=== PATIENT | female | born 1995 | race African-American/Black ===

== ENCOUNTER 2023-02-25 22:42 | Inpatient (IN) ==
[2023-02-26] MEDS ORDERED: PENICILLIN G POTASSIUM 6 MU in DEXTROSE 5% 250 ML IV STA (01:03)
[2023-02-26] MEDS ORDERED: LIDOCAINE 1% LOCAL 20 ML VIAL INFIL PRN (01:03)
[2023-02-26] MEDS ORDERED: OXYTOCIN 30 UNITS/500 ML BAG IV PRN ×2 (01:03→11:20)
[2023-02-26] MEDS: LACTATED RINGER'S 1,000 ML IV PRN ×2 (01:25→05:00)
[2023-02-26 01:36] LABS: Hematocrit (blood only) 33.9 % (37.0-47.0); Hemoglobin 10.9 g/dl (12.0-16.0); Mean Corpuscular Hemoglobin 25.9 pg (25.0-34.0); Mean Corpuscular Hgb Conc 32.2 g/dL (32.0-36.0); Mean Corpuscular Volume 80.5 fL (80.0-100.0); Mean Platelet Volume 12.1 fL (9.4-12.4); Platelet Count 132 K/uL (130-400); RDW Coefficient of Variation 15.9 % (11.5-14.5); RDW Standard Deviation 45.5 fL (36.4-46.3); Red Blood Count 4.21 M/uL (4.20-5.40); White Blood Count 13.91 K/ul (4.8-10.8)
[2023-02-26] MEDS ORDERED: fentaNYL citrate PF 100 MCG/2 ML VIAL ONE (01:45)
[2023-02-26] MEDS ORDERED: ePHEDrine sulfate 50 MG/ML AMP ONE (01:45)
[2023-02-26] MEDS ORDERED: BUPIVACAINE 0.25% PF 30 ML VIAL ONE (01:46)
[2023-02-26] MEDS ORDERED: fentaNYL 2MCG/ML ROPIVACAINE 1.25MG/ML 100 ML BAG EPI ONE (01:46)
[2023-02-26] MEDS ORDERED: LIDOCAINE 2%/EPINEPHRINE 1:200,000 20 ML PF ONE (01:46)
[2023-02-26] MEDS ORDERED: SODIUM CHLORIDE 0.9% PF INJ 10 ML VIAL ONE (01:46)
[2023-02-26] MEDS ORDERED: LIDOCAINE 2% MPF LOCAL 5 ML VIAL EPI PRN (02:28)
[2023-02-26] MEDS ORDERED: ONDANSETRON INJ 2 MG/ML 2 ML VIAL IV PRN (02:28)
[2023-02-26] MEDS ORDERED: LIDOCAINE 2%/EPINEPHRINE 1:200,000 20 ML PF EPI STA (02:28)
[2023-02-26] MEDS ORDERED: fentaNYL 2MCG/ML ROPIVACAINE 1.25MG/ML 100 ML BAG EPI PRN (02:28)
[2023-02-26] MEDS ORDERED: SODIUM CHLORIDE 0.9% PF INJ 10 ML VIAL EPI STA (02:28)
[2023-02-26] MEDS ORDERED: fentaNYL citrate PF 100 MCG/2 ML VIAL EPI PRN (02:28)
[2023-02-26] MEDS ORDERED: diphenhydrAMINE 50 MG/ML VIAL IV PRN (02:28)
[2023-02-26] MEDS ORDERED: NALOXONE HCL 1 MG in SODIUM CHLORIDE 0.9% 1000ML 1,000 ML IV PRN (02:28)
[2023-02-26] MEDS ORDERED: BUPIVACAINE 0.25% PF 30 ML VIAL EPI PRN (02:28)
[2023-02-26] MEDS ORDERED: NALOXONE HCL 0.4 MG/1 ML VIAL/CARP IV PRN (02:28)
[2023-02-26] MEDS ORDERED: fentaNYL citrate PF 100 MCG/2 ML VIAL EPI STA (02:28)
[2023-02-26] MEDS ORDERED: BUPIVACAINE 0.25% PF 30 ML VIAL EPI STA (02:28)
[2023-02-26] MEDS ORDERED: SODIUM CHLORIDE 0.9% PF INJ 10 ML VIAL EPI PRN (02:28)
[2023-02-26] MEDS ORDERED: ROPIVACAINE 0.5% PF 5 MG/ML 20 ML VIAL EPI PRN (02:28)
[2023-02-26] MEDS ORDERED: NALBUPHINE HCL INJ 10 MG/ML AMP IV PRN (02:28)
[2023-02-26] MEDS ORDERED: ePHEDrine sulfate 50 MG/ML AMP IV PRN (02:28)
--- NOTE | 2023-02-26 02:30 | Anesthesiology Consultation ---
Date of Service February 26, 2023 Assessment & Plan Chart Review Chart Review: Patient NOT seen in Pre Admission Testing and Acceptable Risk for Labor Epidural Consults Requested none ASA ASA2 Proposed Anesthesia Anesthesia Type: Labor Epidural Risk / Benefits Reviewed With: PT / POA / Parent / Guardian, Accepts Plan and Informed Consent Obtained History Height/Weight Height: 5 ft 5 in Weight: 102.512 kg Allergies Allergy/AdvReac Type Severity Reaction Status Date / Time No Known Allergies Allergy Verified 02/22/23 12:12 Medications Home Medications Medication Instructions Recorded Confirmed Last Taken albuterol 1 puff inhalation DIRECTED 02/26/23 02/26/23 Unknown [id number] 1 mg 1 tab PO DAILY 02/26/23 02/26/23 Unknown tablet Active Medications Generic Name Dose Route Start Last Admin Trade Name Freq PRN Reason Stop Dose Admin Lactated Ringer's 1,000 mls @ 125 mls/hr 02/26/23 01:03 02/26/23 02:10 Lr IV 02/28/23 01:02 125 mls/hr .Q8H PRN Infusion L&D Protocol Protocol Past Medical History Medical History (Updated 01/15/23 @ 07:57 by Carlie Gross MD, FACOG) Asthma History of chicken pox Exercise / Class Metabolic Activity II 4-5 Yardwork/Stairs/Walk up hill Past Family History Family History (Updated 01/03/23 @ 14:15 by Consuelo Zelaya) Grandfather (Paternal) Diabetes Mother Thyroid cancer Denies family history of Ovarian cancer Breast cancer Colorectal cancer Past Surgical History Surgical History (Updated 01/03/23 @ 14:36 by Consuelo Zelaya) S/P tonsillectomy S/P wisdom tooth extraction Past Anesthesia History No Hx of Anesthesia Complications and No Family Hx of Anesthesia Complications History of PONV No Hx of PONV and No Hx of Motion Sickness Social History Smoking Status: Never smoker Do You Dip or Chew Tobacco: No Hx Alcohol Use: No Hx Substance Use: No Physical Exam Vital Signs Last Vital Signs Temp 36.6 C 02/25/23 22:58 Pulse 115 H 02/26/23 02:27 Resp 18 02/25/23 22:58 BP 114/64 02/26/23 02:27 Pulse Ox 94 02/26/23 02:27 ENMT Mouth: no dentition abnormality Thyromental Distance: > or= 3.5 Finger Breadths Mallampati Class: II Neck normal visual inspection Respiratory normal respiratory effort Auscultation: lungs clear to auscultation bilaterally Cardiovascular Rate/Rhythm: regular rate and regular rhythm Psychiatric Orientation: alert Testing Laboratory Results 02/26/23 01:18
[2023-02-26] MEDS: PENICILLIN G POTASSIUM 3 MU in DEXTROSE 5% 100 ML IV PRN ×2 (05:09→09:09)
--- NOTE | 2023-02-26 07:11 | History & Physical Report ---
Date of Service February 26, 2023 Assessment & Plan (1) GBS (group B Streptococcus carrier), +RV culture, currently : (2) Encounter for supervision of normal in multigravida: (3) Normal labor: Emily Franks is a 27-year-old G3, P2 at 40 weeks 2 days gestational age presents in labor. 1. Fetus: Cat 1 2. Labor: Progressing. Augment as indicated 3. GBS positive: PCN 4. Vitals within normal limit History of Present Illness Primary Care Provider: EVANGELIST Franks is a 27-year-old G3, P2 presents in the labor. Denying leakage of fluid or vaginal bleeding. Reports good movement. complicated by GBS positive. Has a history of 2 vaginal deliveries without complication. OB Optional Labs: No Data to Display Labs Reviewed: Initial OB Labs 07/31/22 Blood Type & RH B positive Antibody Screen negative HCT/HGB 37.2/11.6 Platelets 169 Hep C IgG 13yrs+ Old non- reactive Pap Test Chlamydia negative Gonorrhea negative Rubella reactive RPR nonreactive Urine Culture/Screen HBsAg nonreactive HIV nonreactive MCV 82.1 Ultrasound 24-28 Week OB Labs 12/08/22 HCT/HGB 31.3/9.9 Diabetes Screen (1hr) 106 2HR GTT (if screen abnormal) Antibody Screen Urine Culture/Screen Allergies Allergy/AdvReac Type Severity Reaction Status Date / Time No Known Allergies Allergy Verified 02/22/23 12:12 Home Medications Medication Instructions Recorded Confirmed Type albuterol 1 puff inhalation DIRECTED 02/26/23 02/26/23 History [id number] 1 mg 1 tab PO DAILY 02/26/23 02/26/23 History tablet Patient History Medical History (Updated 02/26/23 @ 07:10 by Ruslan Mccoy MD) Asthma History of chicken pox Surgical History (Updated 01/03/23 @ 14:36 by Consuelo Zelaya) S/P tonsillectomy S/P wisdom tooth extraction Family History (Updated 01/03/23 @ 14:15 by Consuelo Zelaya) Grandfather (Paternal) Diabetes Mother Thyroid cancer Denies family history of Ovarian cancer Breast cancer Colorectal cancer Social History (Updated 01/03/23 @ 14:16 by Consuelo Zelaya) Smoking Status: Never smoker Do You Dip or Chew Tobacco: No; Hx Alcohol Use: No Hx Substance Use: No 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 Beliefs That Will Affect Care: None marital status: Single marital status details: Pepper Bautista (33) [phone] Current Living Situation: Spouse and Parent Current Living Situation Comment: lives with fob, 2 children, no pets current occupational status: employed 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 Results & Data Vital Signs (Past 12 Hours) Vital Signs Temp Pulse Resp BP 02/25/23 22:58 36.6 C 18 02/25/23 22:56 100 H 120/76 Coding Level of Care Code None Diagnoses GBS (group B Streptococcus carrier), +RV culture, currently O99.820 Encounter for supervision of normal in multigravida Z34.80 Normal labor O80; Z37.9
--- NOTE | 2023-02-26 09:03 | Labor Progress Brief Note ---
Date of Service February 26, 2023 Subjective comfortable Assessment & Plan (1) Normal labor: (2) GBS (group B Streptococcus carrier), +RV culture, currently : Plan arom for mec. fetus category one. anticipate . Admission and Anticipated Discharge Date Admission Date: February 26, 2023 Physical Exam Physical Exam: cx--ant lip, +1, arom for thin green mec toco--q5-6min efm--120s with mod variability, accels to 140s, no decels, +scalp stim. Results & Data Vital Signs (Past 12 Hours) Vital Signs Temp Pulse Resp BP Pulse Ox 02/26/23 07:05 36.8 C 20 02/25/23 22:58 36.6 C 18 02/26/23 08:59 101 H 120/68 02/26/23 08:57 89 97 02/26/23 08:52 84 95 02/26/23 08:47 91 H 95 02/26/23 08:44 93 H 111/69 02/26/23 08:42 91 H 95 02/26/23 08:37 87 96 02/26/23 08:30 20 02/26/23 08:30 20 02/26/23 08:32 91 H 97 02/26/23 08:29 96 H 107/67 02/26/23 08:27 90 95 02/26/23 08:22 91 H 97 02/26/23 08:17 88 95 02/26/23 08:14 93 H 109/67 02/26/23 08:12 94 H 94 02/26/23 08:00 20 02/26/23 08:00 20 02/26/23 08:07 94 H 95 02/26/23 08:02 92 H 94 02/26/23 07:59 99 H 111/68 02/26/23 07:57 96 H 94 02/26/23 07:52 90 97 02/26/23 07:47 93 H 94 02/26/23 07:44 91 H 111/69 02/26/23 07:42 99 H 95 02/26/23 07:37 96 H 94 02/26/23 07:32 90 94 02/26/23 07:30 20 02/26/23 07:30 20 02/26/23 07:29 94 H 116/72 07/31/23 07:27 97 H 95 02/26/23 07:22 101 H 95 02/26/23 07:17 96 H 94 02/26/23 07:14 103 H 110/71 02/26/23 07:12 98 H 93 02/26/23 07:07 101 H 96 02/26/23 07:02 100 H 97 02/26/23 06:59 94 02/26/23 06:59 104 H 02/26/23 06:59 96 H 118/74 02/26/23 06:57 102 H 96 02/26/23 06:52 94 H 96 02/26/23 06:47 90 95 02/26/23 06:46 92 H 94 02/26/23 06:44 95 H 119/73 02/26/23 06:42 89 96 02/26/23 06:40 99 H 94 02/26/23 06:37 91 H 95 02/26/23 06:34 99 H 94 02/26/23 06:32 92 H 95 02/26/23 06:29 87 126/79 02/26/23 06:27 96 H 95 02/26/23 06:26 106 H 93 02/26/23 06:22 96 H 96 02/26/23 06:20 98 H 91 02/26/23 06:17 99 H 96 02/26/23 06:14 88 121/72 02/26/23 06:12 97 H 97 02/26/23 06:07 92 H 95 02/26/23 05:56 18 02/26/23 05:56 18 02/26/23 06:02 92 H 95 02/26/23 05:59 100 H 113/69 02/26/23 05:57 96 02/26/23 05:57 97 H 02/26/23 05:57 96 H 94 02/26/23 05:52 92 H 96 02/26/23 04:54 18 02/26/23 04:54 18 02/26/23 05:47 95 H 95 02/26/23 05:44 100 H 119/71 02/26/23 05:42 101 H 97 02/26/23 05:40 114 H 94 02/26/23 05:37 100 H 95 02/26/23 05:32 99 H 96 02/26/23 05:30 94 H 117/72 02/26/23 05:27 105 H 97 02/26/23 05:25 94 02/26/23 05:25 89 02/26/23 05:25 36.7 C 96 H 18 120/67 02/26/23 05:22 99 H 98 02/26/23 05:17 101 H 96 02/26/23 05:15 102 H 94 02/26/23 05:12 111 H 96 02/26/23 05:07 111 H 98 02/26/23 05:02 101 H 96 02/26/23 05:00 90 122/77 02/26/23 04:57 95 H 95 02/26/23 04:52 100 H 96 02/26/23 04:47 95 H 95 02/26/23 04:44 91 H 120/77 02/26/23 04:42 87 96 02/26/23 04:37 87 97 02/26/23 04:32 91 H 97 02/26/23 04:30 94 H 94 02/26/23 04:29 86 119/72 02/26/23 04:27 98 H 94 02/26/23 04:25 92 H 94 02/26/23 04:22 88 18 95 02/26/23 04:20 95 H 94 02/26/23 04:17 95 H 94 02/26/23 04:14 94 02/26/23 04:14 101 H 02/26/23 04:14 103 H 112/66 02/26/23 04:12 92 H 93 02/26/23 04:07 96 H 93 02/26/23 04:02 94 H 93 02/26/23 03:59 104 H 111/66 02/26/23 03:57 96 H 94 02/26/23 03:55 102 H 94 02/26/23 03:52 92 H 94 02/26/23 03:50 96 H 94 02/26/23 03:47 106 H 94 02/26/23 03:44 87 112/66 94 02/26/23 03:42 99 H 95 02/26/23 03:37 95 H 95 02/26/23 03:36 87 94 02/26/23 03:32 101 H 95 02/26/23 03:31 87 93 02/26/23 03:29 104 H 110/65 02/26/23 03:27 97 H 95 02/26/23 03:22 102 H 95 02/26/23 03:23 104 H 94 02/26/23 03:18 89 94 02/26/23 02:40 18 02/26/23 02:40 18 02/26/23 02:45 18 02/26/23 02:45 18 02/26/23 03:17 104 H 95 02/26/23 02:35 18 02/26/23 02:35 18 02/26/23 03:15 99 H 115/67 02/26/23 03:12 102 H 96 02/26/23 03:10 88 93 02/26/23 03:07 107 H 95 02/26/23 03:04 85 94 02/26/23 03:02 106 H 95 02/26/23 02:59 98 H 18 113/66 02/26/23 02:57 94 02/26/23 02:57 96 H 02/26/23 02:57 87 93 02/26/23 02:52 107 H 95 02/26/23 02:50 104 H 94 02/26/23 02:47 109 H 95 02/26/23 02:44 101 H 116/67 02/26/23 02:42 100 H 95 02/26/23 02:37 105 H 95 02/26/23 02:32 104 H 94 02/26/23 02:27 115 H 114/64 94 02/26/23 02:25 98 H 18 123/68 02/26/23 02:22 106 H 96 02/26/23 02:21 109 H 93 02/26/23 02:20 104 H 139/69 02/26/23 02:17 94 H 99 02/26/23 02:11 105 H 138/90 02/25/23 22:56 100 H 120/76 Coding Level of Care Code None Diagnoses Normal labor O80; Z37.9 GBS (group B Streptococcus carrier), +RV culture, currently O99.820
--- NOTE | 2023-02-26 11:12 | Delivery Summary ---
Vaginal Delivery Summary Date of Service February 26, 2023 Vaginal Delivery Summary Vaginal Delivery Summary: Pre-delivery diagnoses: 27yo @ 40 2/, elective IOL, GBS+, transfer of care Post-delivery diagnoses: same Procedure: spontaneous vaginal delivery Surgeon: Greta Rubi DO Complications: none Findings: Viable female . Apgars 8/9 and weight pending, please see nursery records Estimated blood loss: 300ml Description of delivery: The patient progressed to complete with epidural anesthesia. She then began to push. She spontaneously vaginally delivered a viable from the cephalic presentation. The head delivered in BUCK position. The anterior shoulder delivered, followed by the posterior shoulder, followed by the body. No nuchal. The baby was placed on mother's abdomen and was vigorious and a spontaneous cry was heard. Delayed cord clamping was employed, and the cord was doubly clamped and cut. Cord blood was obtained. The placenta was delivered spontaneously intact with a 3-vessel cord. The uterus and vagina were swept of clots and debris. IV pitocin was given. The uterus became firm. The cervix, vagina, and perineum were inspected and no lacerations were noted. Excellent hemostasis was observed. The mother and baby are recovering in stable and good condition in the room. Sponge and instrument counts were correct x 2. Greta Rubi DO [facility] [place] Vaginal Delivery Charge Vaginal Delivery Codes: 73960 global code for the antepartum, delivery, and post- Delivery Type Details:
[2023-02-26] MEDS ORDERED: HYDROCORTISONE ACETATE 25 MG SUPP PR PRN (11:20)
[2023-02-26] MEDS ORDERED: oxyCODONE/ACETAMINOPHEN 5mg/325mg TAB PO PRN (11:20)
[2023-02-26] MEDS ORDERED: IBUPROFEN 600 MG TAB PO PRN (11:20)
[2023-02-26] MEDS ORDERED: DIPHTHERIA/TETANUS/PERTUSSIS Vaccine (Tdap, Age 7+yrs) 0.5mL SYR/VL IM ONE (11:20)
[2023-02-26] MEDS ORDERED: ACETAMINOPHEN 325 MG TAB PO PRN (11:20)
[2023-02-26] MEDS ORDERED: BENZOCAINE 20% SPRY 85 APPLN/85 GM CAN EXT PRN (11:20)
[2023-02-26] MEDS ORDERED: bisacodyL 10 MG SUPP PR PRN (11:20)
--- NOTE | 2023-02-26 12:41 | Anesthesia Procedure Note ---
Date of Service February 26, 2023 Anesthesia Post Epidural Note Vital Signs Vital Signs: Temp Pulse Resp BP Pulse Ox 36.7 C 76 20 115/66 81 L 02/26/23 09:00 02/26/23 12:29 02/26/23 12:14 02/26/23 12:29 02/26/23 10:59 Notes Mental Status: alert / awake / arousable and participated in evaluation Nausea / Vomiting: adequately controlled Pain: adequately controlled Airway Patency, RR, SpO2: stable & adequate BP & HR: stable & adequate Hydration State: stable & adequate Neuraxial Anesthesia: was administered and sensory block is resolving Anesthetic Complications: no major complications apparent and Pt Satisfied with anesthetic care Epidural: Removed without complications and With tip intact
[2023-02-26] MEDS: ceFAZolin 1000MG 1,000 MG/7.5 ML SYR IV SCH ×2 (13:18→20:02)
[2023-02-26] MEDS: DOCUSATE SODIUM 100 MG CAP PO SCH (21:06)
[2023-02-27] MEDS: ceFAZolin 1000MG 1,000 MG/7.5 ML SYR IV SCH (04:15)
--- NOTE | 2023-02-27 07:04 | Obstetrical Progress Note ---
Date of Service <Mercy Hazel MD - Last Filed: 02/27/23 08:38> February 27, 2023 Assessment & Plan <Mercy Hazel MD - Last Filed: 02/27/23 08:38> (1) Spontaneous vaginal delivery: Patient with the above mentioned history and findings was evaluated at bedside and found awake, alert, oriented in all spheres, afebrile, and in no acute distress. Overall, patient is doing well clinically. Therefore, will encourage ambulation as tolerated and will resume regular diet. Will continue monitoring pain levels and management with current regimen. Patient is encouraged to breastfeed and to notify changes in normal lochia such as excessive bleeding (using more than 1 pad per hour), foul smell, or purulent appearance. Discharge instructions were discussed. She is to make an appointment with her OB in 6 weeks for follow up evaluation. All questions were answered. <Greta Rubi DO - Last Filed: 02/27/23 08:59> (1) Spontaneous vaginal delivery: Subjective <Mercy Hazel MD - Last Filed: 02/27/23 08:38> Tiny is a 27 y/o female who is now PPD # 1 following at 40 2/7 weeks. Reports feeling well overall this morning. Refers moderate abdominal cramping & 4/10 pain well managed on analgesics. Voiding spontaneously. Tolerating meals overnight and able to ambulate some. She is passing gas but has not had a bowel movement yet. Some persistent lochia with some improvement this morning. Bottle feeding. Her blood type is B positive and her Hb is 9.8. She is GBS positive treated during labor, and is rubella immune. Constitutional: no fever, no chills or no sweats Denies shortness of breath or difficulty breathing Cardiovascular: no chest pain or no palpitations Breast: no breast pain Genitourinary (female): no dysuria Neurologic: no headache(s) Denies changes in vision Physical Exam <Mercy Hazel MD - Last Filed: 02/27/23 08:38> General: Alert. Oriented to person, time, and place. Afebrile. No acute distress. Eyes: pupils equal and reactive to light bilaterally, extraocular movements intact. Cardiac: Regular rate and rhythm, no murmurs/rubs/gallops. Respiratory: Clear to auscultation bilaterally a/p, no wheezes/rales/rhonchi. No increased work of breathing. Symmetrical chest rise. No respiratory distress. Abdomen: Soft, nontender, nondistended. Bowel sounds present. Uterus: Uterine fundus firm, mildly tender, and is palpable below umbilicus. Lower Extremities: Bilateral lower extremity swelling without pitting. No deep calf pain. Abdirahman's negative bilaterally. Psych: Euthymic affect. Mood and affect congruence. Regular speech rate and content. Results & Data <Mercy Hazel MD - Last Filed: 02/27/23 08:38> Vital Signs (Past 12 Hours) Vital Signs Temp Pulse Resp BP Pulse Ox O2 Del Method 02/27/23 04:25 36.7 C 82 16 126/86 02/26/23 23:05 36.7 C 88 18 126/86 98 Room Air 02/26/23 19:50 36.6 C 88 18 132/84 98 Room Air <Greta Rubi DO - Last Filed: 02/27/23 08:59> Co-Signing Physician Notes Resident Physician Supervision Note: I was present with Dr. Hazel during the history and exam. I discussed the case with the resident and agree with the findings and plan as documented in the note. Any exceptions or clarifications are listed here: PPD#1 doing well, desires DC home. Reviewed instructions. Documented By: Greta Rubi DO Resident Activity Tracking <Mercy Hazel MD - Last Filed: 02/27/23 08:38> Resident Involvement: Resident Care Provided Care Provided: OB Delivery
[2023-02-27 07:09] LABS: Hematocrit (blood only) 31.1 % (37.0-47.0); Hemoglobin 9.8 g/dl (12.0-16.0)
[2023-02-27] MEDS ORDERED: PRENATAL VITAMIN 1 TAB PO SCH (08:00)
[2023-02-27] MEDS: DOCUSATE SODIUM 100 MG CAP PO SCH (08:20)
[2023-02-27] MEDS ORDERED: bisacodyL 5 MG TABEC PO SCH (20:00)
== END 2023-02-27 13:15 | disposition home or self-care (01) | DRG 807 ==
LOC: OPB 22:42 → 4S1 22:44 → 4E2 02-26 14:06